=== PATIENT | female | born 1980 ===

== ENCOUNTER 2019-01-28 16:10 | Emergency (ER) | payer BC ==
[2019-01-28 16:40] VITALS: BP 150/98
--- NOTE | 2019-01-28 17:15 | ED ---
GI/ HPI - HPI Summary HPI Summary: pt presents for evaluation of possible herpes outbreak she states she has been in a monogomous relationship for 2 years. she had sex 2 days ago. nothing different. no use of toys or more aggressive sex. she states that she is having just a burning to her genitalia. she looked with a mirror today and was unable to see anything. she denies any burning with urination. she simply states the entire area galan. - History of Current Complaint Chief Complaint: [facility] Stated Complaint: PERSONAL Hx Obtained From: Patient Hx Last Menstrual Period: 01/05/19 Onset/Duration: Started Days Ago Timing: Constant Severity: Mild Current Severity: Mild Pain Intensity: 3 Additional Location for Females: Other - labia Pain Characteristics: Burning Associated Signs and Symptoms: Positive: Negative. Negative: Dysuria Additional Signs & Symptoms: Negative: Genital Swelling, Genital Blisters, Retained Foreign Body, Vaginal Bleeding, Vaginal Discharge, STD - Allergy/Home Medications Allergies/Adverse Reactions: Allergies Allergy/AdvReac Type Severity Reaction Status Date / Time No Known Allergies Allergy Verified 01/28/19 16:40 PMH/Surg Hx/FS Hx/Imm Hx Previously Healthy: Yes - Surgical History Surgery Procedure, Year, and Place: gallbladder removed. ovarian cyst removed Infectious Disease History: No Infectious Disease History: Denies: Traveled Outside the [place] in Last 30 Days - Social History Alcohol Use: Occasionally Substance Use Type: Reports: None Smoking Status (MU): Light Every Day Tobacco Smoker Type: Cigarettes Review of Systems Constitutional: Negative Eyes: Negative ENT: Negative Cardiovascular: Negative Respiratory: Negative Gastrointestinal: Negative Positive: burning Musculoskeletal: Negative Positive: Rash, Other Neurological: Negative Psychological: Normal All Other Systems Reviewed And Are Negative: No Physical Exam Triage Information Reviewed: Yes Vital Signs On Initial Exam: Initial Vitals Temp Pulse Resp BP Pulse Ox 97.9 F 79 16 150/98 100 01/28/19 16:33 01/28/19 16:33 01/28/19 16:33 01/28/19 16:33 01/28/19 16:33 Vital Signs Reviewed: Yes Appearance: Positive: Well-Appearing, No Pain Distress, Well-Nourished Skin: Positive: Warm, Dry Head/Face: Positive: Normal Head/Face Inspection Eyes: Positive: Normal, EOMI, SRINIVASAN ENT: Positive: Hearing grossly normal Neck: Positive: Supple Respiratory/Lung Sounds: Positive: Clear to Auscultation, Breath Sounds Present Cardiovascular: Positive: Normal, RRR Abdomen Description: Positive: Nontender, Soft Bowel Sounds: Positive: Present Pelvic Exam: Positive: Other - pt has abraded tissue to the inner aspect of her labia minora. Musculoskeletal: Positive: Normal, Strength/ROM Intact Neurological: Positive: Normal, Sensory/Motor Intact, Alert, Oriented to Person Place, Time, CN Intact II-III Psychiatric: Positive: Normal, Affect/Mood Appropriate, Anxious AVPU Assessment: Alert Diagnostics - Vital Signs Vital Signs Temp Pulse Resp BP Pulse Ox 01/28/19 16:33 97.9 F 79 16 150/98 100 - Laboratory Lab Statement: Any lab studies that have been ordered have been reviewed, and results considered in the medical decision making process. GIGU Course/Dx - Course Course Of Treatment: On exam, I see no evidence of herpes. I do see that the area to the labia minora has marked abraded area. a culture of one area was taken. I do not see any descrete herpetic lesions. I will rx steroids for 3 days. I encouraged her to take benadryl and to use antibiotic ointment to the area. I further encouraged her to f/u with her pcp or client integration manager for a more complete client integration manager exam. I encouraged her to get yearly exams. - Diagnoses Provider Diagnoses: Abrasion Discharge - Sign-Out/Discharge Documenting (check all that apply): Patient Departure All imaging exams completed and their final reports reviewed: No Studies - Discharge Plan Condition: Stable Disposition: HOME Prescriptions: predniSONE TAB* [Deltasone 20 MG TAB*] 40 mg PO DAILY #6 tab Patient Education Materials: Abrasion (ED) Referrals: No Primary Care Phys,[facility] [Primary Care Provider] - [facility] [Provider Group] Additional Instructions: apply antibiotic ointment to the abraded tissues. take benadryl for inflammation and irritation. take tylenol and motrin for pain. follow up with your pcp. if you do not have one, I have given you a referral to a pcp group. you need to have yearly client integration manager exams. - Billing Disposition and Condition Condition: STABLE Disposition: Home
== END 2019-01-28 17:23 | disposition home or self-care (01) ==
LOC: UCCORT 16:10
DX: S30.814A Abrasion of vagina and vulva, initial encounter (principal); X58.XXXA Exposure to other specified factors, initial encounter; F17.210 Nicotine dependence, cigarettes, uncomplicated
CPT/HCPCS: 87529; 99212; G0463